=== PATIENT | male | born 1950 | race Caucasian/White ===

== ENCOUNTER → 2020-10-06 | Outpatient (CLI) | payer MEDICARE, OTHER ==
[~2020-10-06] MED LIST: ACHD5005 PO; ASCO-262 PO; ASPI-1238 PO; DILT180C82 PO; GLUC-235 PO; IBUP-2473 PO; LEVO137C4 PO; OMEG1CAP58 PO; ONDA4TAB11 PO; TMSL.4C PO; ZINC50TA58 PO
--- NOTE | 2020-10-06 15:21 | Diagnostic Imaging Report ---
Indication: Right-sided kidney stone Supine views of the abdomen shows no abnormally dilated loops of bowel. No urinary tract stone is evident. There are degenerative changes of the lower lumbar spine. IMPRESSION: No acute normality is seen. Dictated by: Dictated on workstation # [id number]
== END ==
LOC: RAD 13:47
PROVIDERS: ATTEND Urology
DX: N20.0 Calculus of kidney (principal)
CPT/HCPCS: 74018

== ENCOUNTER 2020-10-10 05:37 | Outpatient (CLI) | payer MEDICARE, OTHER ==
[~2020-10-10] VITALS: Ht 177.8 cm; Wt 81.7 kg
[2020-10-10] MEDS ORDERED: GLUC-235 PO (13:27)
[2020-10-10] MEDS ORDERED: OMEG1CAP58 PO (13:27)
[2020-10-10] MEDS ORDERED: ZINC50TA58 PO (13:27)
[2020-10-10] MEDS ORDERED: ACHD5005 PO (13:27)
[2020-10-10] MEDS ORDERED: ONDA4TAB11 PO (13:27)
[2020-10-10] MEDS ORDERED: IBUP-2473 PO (13:27)
[2020-10-10] MEDS ORDERED: TMSL.4C PO (13:27)
[2020-10-10] MEDS ORDERED: ASPI-1238 PO (13:27)
[2020-10-10] MEDS ORDERED: DILT180C82 PO (13:27)
[2020-10-10] MEDS ORDERED: LEVO137C4 PO (13:27)
[2020-10-10] MEDS ORDERED: ASCO-262 PO (13:27)
== END 2020-10-10 14:40 | disposition home or self-care (01) ==
LOC: PREOP 05:37
PROVIDERS: ATTEND Urology
DX: Z01.818 Encounter for other preprocedural examination (principal)

== ENCOUNTER 2020-10-11 07:50 | Day surgery (SDC) | payer MEDICARE, OTHER ==
[2020-10-11] VITALS (11 sets, daily range): BP systolic 121–171; BP diastolic 64–94
[~2020-10-11] VITALS: Ht 117.8 cm; Wt 81.7 kg
--- NOTE | 2020-10-11 08:24 | Progress Note-Pre Operative ---
Pre-Operative Progress Note H&P Reviewed The H&P was reviewed, patient examined and no changes noted. Date Seen by Provider: Oct 11, 2020 Time Seen by Provider: 08:24 Date H&P Reviewed: Oct 11, 2020 Time H&P Reviewed: 08:24 Pre-Operative Diagnosis: RT DISTAL URETERAL STONE ARTEM MILIAN MD Oct 11, 2020 08:24
[2020-10-11] MEDS ORDERED: LIDOCAINE PF 2% 5 ML (XYLOCAINE) VIAL ONE (08:27)
[2020-10-11] MEDS ORDERED: ONDANSETRON 4 MG/2 ML (SDV) Z0FRAN ONE (08:27)
[2020-10-11] MEDS ORDERED: fentaNYL INJ 100 MCG/2 ML AMP ONE (08:27)
[2020-10-11] MEDS ORDERED: MIDAZOLAM 2 MG/2 ML (VERSED) VIAL ONE (08:27)
[2020-10-11] MEDS ORDERED: proPOfol 200 MG/20 ML (DIPRIVAN) VIAL IV ONE (08:27)
[2020-10-11] MEDS ORDERED: LACTATED RINGERS 1,000 ML IV PRN (08:30)
[2020-10-11] MEDS ORDERED: cefTRIAXone 1,000 MG VIAL ONE (08:32)
--- NOTE | 2020-10-11 08:44 | Progress Note-Post Operative ---
Post-Operative Progess Note Surgeon (s)/Automatic Spreader Operator (s) Surgeon ARTEM MILIAN MD Automatic Spreader Operator: NONE Pre-Operative Diagnosis RT DISTAL URETERAL STONE Post-Operative Diagnosis SAME Procedure & Operative Findings Date of Procedure 10/11/20 Procedure Performed/Findings CYSTOSCOPY, RT URETEROSCOPY WITH STONE LITHOTRIPSY Anesthesia Type GENERAL Estimated Blood Loss Estimated blood loss (mL): NONE Specimens/Packing Specimens Removed NONE Packing: NONE ARTEM MILIAN MD Oct 11, 2020 08:44
[2020-10-11] MEDS ORDERED: ROCURONIUM 10 MG/ML 5 ML SYRINGE IV ONE (08:45)
--- NOTE | 2020-10-11 08:45 | Discharge Inst-Urology ---
Discharge Inst-Urology Reconcile Patient Problems Problems Reviewed?: Yes Final Diagnosis RT DISTAL URETERAL STONE Patient Instructions/Follow Up Plan/Assessment/Instructions Please make appointment to been seen in office in 2 weeks. Increase oral fluids for 48 hours and then as needed. Diet and Activity as tolerated. If questions or concerns contact your physician Or seek help at emergency department. ARTEM MILIAN MD Oct 11, 2020 08:45
--- NOTE | 2020-10-11 09:00 | Diagnostic Imaging Report ---
INDICATION: Nephrolithiasis. COMPARISON: 10/06/2020. FINDINGS: No radiopaque urinary tract calculi can be detected. No bowel obstruction. There is lower lumbar degenerative spinal disease. IMPRESSION: No acute or suspicious abnormality is radiographically apparent. Dictated by: Dictated on workstation # [id number]
[2020-10-11] MEDS ORDERED: SEVOFLURANE (ULTANE) 15 ML INHAL SOLN ONE ×2 (09:02→09:42)
[2020-10-11] MEDS ORDERED: GLYCOPYRROLATE 0.2 MG/ML (ROBINUL) 2 ML VIAL ONE (09:33)
[2020-10-11] MEDS ORDERED: NEOSTIGMINE 3 MG/3 ML VIAL ONE (09:33)
[2020-10-11] MEDS ORDERED: FUROSEMIDE 40 MG/4 ML INJ (LASIX) ONE (09:36)
[2020-10-11] MEDS ORDERED: KETOROLAC 30 MG/ML VIAL ONE (09:36)
[2020-10-11] MEDS ORDERED: ONDANSETRON 4 MG/2 ML (SDV) Z0FRAN IVP PRN (10:00)
[2020-10-11] MEDS ORDERED: HYDROmorphone 2 MG/ML VIAL (DILAUDID) IV ONE (10:00)
--- NOTE | 2020-10-11 10:05 | Anesthesia-General Post-Op ---
General Patient Condition Mental Status/LOC: Same as Preop Cardiovascular: Satisfactory Nausea/Vomiting: Absent Respiratory: Satisfactory Pain: Controlled Complications: Absent Post Op Complications Complications None Follow Up Care/Instructions Patient Instructions None needed. Anesthesia/Patient Condition Patient Condition Patient is doing well, no complaints, stable vital signs, no apparent adverse anesthesia problems. No complications reported per nursing. D/C home per [facility] [place] Criteria: Yes JOSE RESTREPO CRNA Oct 11, 2020 10:05
--- NOTE | 2020-10-11 14:45 | OPERATIVE REPORT ---
DATE OF SERVICE: 10/11/2020 PREOPERATIVE DIAGNOSIS: Right distal ureteral stone. POSTOPERATIVE DIAGNOSIS: Right distal ureteral stone. OPERATION PERFORMED: Cystoscopy, right ureteroscopy with stone lithotripsy. SURGEON: Asa Milian MD ANESTHESIA: General. COMPLICATIONS: None. DESCRIPTION OF PROCEDURE: Under satisfactory general anesthesia, the patient in lithotomy position, genitalia were prepped and draped in the usual sterile fashion. Cystoscope was introduced under vision. The anterior urethra was normal. The prostate was mildly enlarged with median bar causing some bladder neck obstruction. The bladder was entered, revealed mild trabeculations. Ureteric orifices normal except for sluggish efflux on the right side. No foreign body, bladder stone or tumor or stone visualized. Using the foroblique lens, I dilated the right ureteral orifice intramural portion to accommodate a 6.9 [place] semi-rigid ureteroscope, went up and visualized the stone and broke it up with lithoclast in very small fragments completely. The stone was of good size and little hard to break, but the lithotripsy was successful. I went beyond the stone. There were no more fragments or stones. Many of the fragments were flowing already into the bladder. I removed the ureteroscope, reinserted the cystoscope to empty the bladder. The patient tolerated the procedure and anesthesia well and was sent to recovery room in stable condition after receiving 30 mg of Toradol and 40 mg of Lasix IV. Job ID: [id number] DocumentID: [id number] Dictated Date: 10/11/2020 09:56:42 Eclectic Doctor Date: 10/11/2020 14:45:22 Dictated By: ASA MILIAN MD
== END 2020-10-11 11:45 | disposition home or self-care (01) ==
LOC: SDC 07:50
PROVIDERS: ATTEND Urology
DX: N20.2 Calculus of kidney with calculus of ureter (principal); I10 Essential (primary) hypertension; J98.4 Other disorders of lung; M19.90 Unspecified osteoarthritis, unspecified site; Z79.899 Other long term (current) drug therapy; Z79.82 Long term (current) use of aspirin; Z79.1 Long term (current) use of non-steroidal anti-inflammatories (NSAID); Z79.890 Hormone replacement therapy; Z85.72 Personal history of non-Hodgkin lymphomas
CPT/HCPCS: 74018; 76000; 87081